=== PATIENT | male | born 1940 | race Caucasian/White ===

== ENCOUNTER → 2018-07-07 | Outpatient (CLI) | payer MEDICARE, BC | LOC: RAD 07:37 | DX: N18.3 Chronic kidney disease, stage 3 (moderate) (principal) ==

== ENCOUNTER 2022-01-06 17:00 | Emergency (ER) | payer MEDICARE, BC ==
[~2022-01-06] VITALS: Ht 175.3 cm; Wt 101.4 kg
[2022-01-06] MEDS ORDERED: ZYLOPRIM 100MG100 MG PO (17:38)
[2022-01-06] MEDS ORDERED: FUROSEMIDE40 MG (17:39)
[2022-01-06] MEDS ORDERED: GOOD SENSE ASPI81 M1 PO (17:39)
[2022-01-06] MEDS ORDERED: APRESOLINE 25MG25 MG PO (17:39)
[2022-01-06] MEDS ORDERED: ATORVASTATIN CA40 MG PO (17:39)
[2022-01-06] MEDS ORDERED: LOSARTAN POTAS100 MG PO (17:40)
[2022-01-06] MEDS ORDERED: ISOSORBIDE MONO60 M2 PO (17:40)
[2022-01-06] MEDS ORDERED: LOPRESSOR 225 MG/TAB PO (17:40)
[2022-01-06] MEDS ORDERED: LEVOTHYROXINE0.15 MG PO (17:40)
[2022-01-06 17:42] LABS: BASO # 0.04 K/mm3 (0.02-0.10); EOS # 0.19 K/mm3 (0.04-0.40); EOS % 2.3 % (0.0-4.0); HEMOGLOBIN 14.7 g/dL (13.5-18.0); MEAN CELL VOLUME 102 fl (78-100); MEAN CORPUSCULAR HEMOGLOBIN 33 pg (27-31); MEAN CORPUSCULAR HGB CONC 32 g/dL (33-37); MEAN PLATELET VOLUME 10.2 fl (7.4-10.4); MONO # 0.88 K/mm3 (0.20-0.80); NEU # 6.02 K/mm3 (1.40-6.50); PLATELET COUNT 165 K/mm3 (130-400); RED BLOOD COUNT 4.52 M/mm3 (4.20-5.60); RED CELL DISTRIBUTION WIDTH 14.5 % (11.5-14.5); WHITE BLOOD COUNT 8.3 K/mm3 (4.8-10.8)
[2022-01-06 17:53] LABS: URINE WBC 0 /hpf (0-3)
[2022-01-06 17:54] LABS: ALBUMIN 4.4 g/dL (3.4-4.8); POTASSIUM 4.8 mmol/L (3.5-5.1); SODIUM 139 mmol/L (136-145)
[2022-01-06 17:55] LABS: CALCIUM 10.4 mg/dL (8.3-10.5)
[2022-01-06 17:56] LABS: GLUCOSE 107 mg/dL (75-110); TOTAL PROTEIN 8.5 g/dL (6.2-8.1)
[2022-01-06 17:58] LABS: CARBON DIOXIDE 19 mmol/L (23-31); TOTAL BILIRUBIN 1.2 mg/dL (0.2-1.2)
[2022-01-06 18:02] LABS: AST-SGOT 88 U/L (5-34)
[2022-01-06 18:03] LABS: ALT/SGPT 67 U/L (0-55)
[2022-01-06 18:09] LABS: URINE APPEARANCE CLEAR; URINE BILIRUBIN NEGATIVE (NEGATIVE); URINE BLOOD 250 ery/uL (NEGATIVE); URINE COLOR YELLOW; URINE GLUCOSE NEGATIVE (NEGATIVE); URINE KETONE NEGATIVE (NEGATIVE); URINE LEUKOCYTE ESTERASE NEGATIVE (NEGATIVE); URINE NITRATE NEGATIVE (NEGATIVE); URINE PROTEIN(semi-quant) 3+ (NEGATIVE); URINE UROBILINOGEN NORMAL (NORMAL)
[2022-01-06 18:13] LABS: TROPONIN-I < 0.030 ng/mL (<0.030)
[2022-01-06 20:10] VITALS: BP 170/101
== END 2022-01-06 20:13 | disposition other institution (70) ==
LOC: ED 17:00
PROVIDERS: Physician Assistant
DX: I11.0 Hypertensive heart disease with heart failure (principal); I50.9 Heart failure, unspecified; I25.10 Atherosclerotic heart disease of native coronary artery without angina pectoris; Z20.822 Contact with and (suspected) exposure to COVID-19; V49.50XA Passenger injured in collision with unspecified motor vehicles in traffic accident, initial encounter; Y92.410 Unspecified street and highway as the place of occurrence of the external cause
CPT/HCPCS: J1940